=== PATIENT | male | born 1970 | race Caucasian/White ===

== ENCOUNTER 2022-08-03 17:07 | Inpatient (IN) | payer SELFPAY ==
--- NOTE | 2022-08-03 17:44 | RAD REPORT ---
EXAM DESCRIPTION: RAD - Chest Single View - 08/03/2022 5:38 pm CLINICAL HISTORY: syncope Chest pain. COMPARISON: No comparisons FINDINGS: Portable technique limits examination quality. The lungs are grossly clear. The heart is normal in size. No displaced fractures. IMPRESSION: No acute intrathoracic process suspected.
[2022-08-03 18:10] LABS: Absolute Lymphocytes (CBC) 1.1 K/uL (0.7-4.9); Hematocrit 29.1 % (39.6-49.0); MCV 93.4 fL (80-100); MPV 8.2 fL (7.6-11.3); RBC Red Blood Cell Count 3.11 M/uL (4.33-5.43)
[2022-08-03] MEDS ORDERED: NA CHLORIDE 0.9% 1,000 ML ONE ×2 (18:22→20:47)
[2022-08-03] MEDS ORDERED: NA CHLORIDE 0.9% 250 ML ONE (18:22)
[2022-08-03] MEDS ORDERED: PANTOPRAZOLE 40 MG INJ ONE (18:22)
[2022-08-03 18:26] LABS: Albumin 3.3 g/dL (3.4-5.0); Bilirubin Direct 0.1 mg/dL (0-0.2); Bilirubin Total 0.5 mg/dL (0.2-1.0); Magnesium 2.1 mg/dL (1.8-2.4); Potassium 3.8 mmol/L (3.5-5.1); Protein, Total 6.5 g/dL (6.4-8.2); Troponin High Sensitivity 13.6 pg/mL (<58.9)
[2022-08-03 18:52] LABS: Protime INR 1.04
--- NOTE | 2022-08-03 19:49 | ER ---
Nurse's Notes [facility] Name: Valentin Meyers Age: 52 yrs Sex: Male : 1970 Arrival Date: 08/03/2022 Time: 17:14 Bed 5 Private MD: Diagnosis: GI Bleed/ Gastrointestinal hemorrhage, unspecified;Syncope;Anemia, unspecified Presentation: 08/03 17:14 Method Of Arrival: EMS: [facility] 17:15 Chief complaint: EMS states: black stools x 3 days. Dizziness/ lightheadedness that ss began today. EMS reports that patient had a syncopal episode upon their arrival to scene. Coronavirus screen: Client denies travel out of the [place] in the last 14 days. Ebola Screen: Patient denies exposure to infectious person. Patient denies travel to an Ebola-affected area in the 21 days before illness onset. Initial Sepsis Screen: Does the patient meet any 2 criteria? No. Patient's initial sepsis screen is negative. Does the patient have a suspected source of infection? No. Patient's initial sepsis screen is negative. Risk Assessment: Do you want to hurt yourself or someone else? Patient reports no desire to harm self or others. Onset of symptoms was July 31, 2022. 17:15 Method Of Arrival: Ambulatory ss 17:15 Acuity: ROJAS 3 ss Triage Assessment: 17:19 General: Appears in no apparent distress. comfortable, Behavior is calm, cooperative, eh3 appropriate for age. Pain: Denies pain. Neuro: Reports dizziness, a syncopal episode. Neuro: Level of Consciousness is awake, alert, obeys commands, Oriented to person, place, time, situation. Cardiovascular: Capillary refill < 3 seconds Patient's skin is warm and dry. Respiratory: Airway is patent Respiratory effort is even, unlabored. GI: Abdomen is round non-distended, Reports bloody stool. : No signs and/or symptoms were reported regarding the genitourinary system. Derm: No signs and/or symptoms reported regarding the dermatologic system. Musculoskeletal: No signs and/or symptoms reported regarding the musculoskeletal system. Historical: - Allergies: 17:18 No Known Allergies; eh3 - Home Meds: 17:18 atorvastatin oral [Active]; Nifedipine Oral [Active]; olmesartan oral [Active]; eh3 - PMHx: 17:19 Hypertensive disorder; Hypercholesterolemia; eh3 - Immunization history:: Adult Immunizations up to date. - Social history:: Smoking status: Patient denies any tobacco usage or history of. Patient uses alcohol, occasionally. Screenin:21 Abuse screen: Denies threats or abuse. Denies injuries from another. Nutritional eh3 screening: No deficits noted. Tuberculosis screening: No symptoms or risk factors identified. Fall Risk None identified. Assessment: 17:21 Reassessment: See triage assessment. Neuro: Level of Consciousness is awake, alert, eh3 obeys commands, Oriented to person, place, time, situation. Cardiovascular: Rhythm is sinus tachycardia. 19:22 Reassessment: Patient appears in no apparent distress at this time. Patient and/or jb4 family updated on plan of care and expected duration. Pain level reassessed. Patient is alert, oriented x 3, equal unlabored respirations, skin warm/dry/pink. Pt's , Mikki Meyers called, pt gave verbal permission to give information to . Vital Signs: 17:14 BP 117 / 85; Pulse 106; Resp 15; Temp 98.6(O); Pulse Ox 99% on R/A; Weight 111.13 kg; eh3 Height 6 ft. 3 in. (190.50 cm); Pain 0/10; 18:00 BP 109 / 79; Pulse 99; Resp 16; Pulse Ox 100% on R/A; eh3 18:20 BP 111 / 79; Pulse 108; Resp 14; Pulse Ox 100% on R/A; eh3 17:14 Body Mass Index 30.62 (111.13 kg, 190.50 cm) eh3 ED Course: 17:14 Patient arrived in ED. ss 17:14 Lupe Wolff, RN is Primary Nurse. eh3 17:15 Arm band placed on right wrist. ss 17:16 Triage completed. ss 17:18 Segundo Moise PA is PHCP. cp 17:18 Segundo Travis MD is Attending Physician. cp 17:21 Patient has correct armband on for positive identification. Placed in gown. Bed in low eh3 position. Call light in reach. Side rails up X2. Client placed on continuous cardiac and pulse oximetry monitoring. NIBP monitoring applied. Door closed. Noise minimized. Lights dimmed. Warm blanket given. 17:21 No provider procedures requiring assistance completed. eh3 17:41 Inserted saline lock: 20 gauge in right antecubital area, using aseptic technique. eh3 Blood collected. 17:42 Lipase Sent. eh3 17:42 Ptt, Activated Sent. eh3 17:42 Basic Metabolic Panel Sent. eh3 17:42 CBC with Diff Sent. eh3 17:42 LFT's Sent. eh3 17:42 Magnesium Sent. eh3 17:42 NT PRO-BNP Sent. eh3 17:42 PT-INR Sent. eh3 17:42 Troponin HS Sent. eh3 18:47 Inserted saline lock: 20 gauge in left antecubital area, using aseptic technique. Blood eh3 collected. 19:48 Nhi Avila PA-C is Hospitalizing Provider. cp 21:36 Patient admitted, IV remains in place. tw5 Administered Medications: 18:47 Drug: ProTONIX (pantoprazole) 8 mg/hr Route: IV; Rate: 25 ml/hr; Site: left antecubital;3 21:34 Follow up: IV Status: Infusion continued upon admission tw5 18:47 Drug: ProTONIX (pantoprazole) 40 mg Route: IVP; Site: left antecubital; 3 21:35 Follow up: Response: No adverse reaction tw5 18:47 Drug: NS 0.9% 1000 ml Route: IV; Rate: 1 bolus; Site: left antecubital; eh3 21:35 Follow up: Response: No adverse reaction; IV Status: Completed infusion; IV Intake: tw5 1000ml 20:39 Not Given (Other Intervention Used): NS 0.9% 1000 ml IV at 1 bolus Per protocol; 1000 jb4 mL bolus 20:45 Drug: NS 0.9% 1000 ml Route: IV; Rate: 100 ml/hr; Site: right antecubital; jb4 21:34 Follow up: Response: No adverse reaction; IV Status: Completed infusion; IV Intake: tw5 1000ml Medication: 17:21 VIS not applicable for this client. 3 Point of Care Testing: Ranges: Intake: 21:34 IV: 1000ml; Total: 1000ml. tw5 21:35 IV: 1000ml; Total: 2000ml. tw5 Outcome: 19:49 Decision to Hospitalize by Provider. cp 21:35 Admitted to Med/surg Report called to bedside report tw5 21:35 Instructed on the need for admit. 21:36 Condition: stable tw5 21:37 Patient left the ED. tw5 Signatures: Archana Tay RN RN ss Segundo Moise PA PA cp Bryson, James, RN RN jb4 Yen Beth tw5 Lupe Wolff RN RN eh3 Corrections: (The following items were deleted from the chart) 17:18 17:14 BP 117 / 85; Pulse 106bpm; Resp 15bpm; Pulse Ox 99% RA; 111.13 kg; Height 6 ft. 3 eh3 in.; BMI: 30.6; Pain 0/10; eh3
--- NOTE | 2022-08-03 19:50 | EDPHYS ---
Physician Documentation [facility] Name: Valentin Meyers Age: 52 yrs Sex: Male : 1970 Arrival Date: 08/03/2022 Time: 17:14 Bed 5 Private MD: ED Physician Segundo Travis HPI: 08/03 17:30 This 52 yrs old Male presents to ER via EMS with complaints of Dizziness, Black/Tarry cp Stools, Syncope. 17:30 The patient presents with dizziness, generalized weakness, lightheadedness. Onset: The cp symptoms/episode began/occurred today. Associated signs and symptoms: Pertinent positives: syncope, black stools times 3 days, Pertinent negatives: abdominal pain, chest pain, diaphoresis, focal weakness. Severity of symptoms: in the emergency department the symptoms are unchanged despite home interventions. Patient's baseline: Neuro: alert and fully oriented, Motor: no deficits, Ambulation: walks without assistance, Speech: normal. Historical: - Allergies: 17:18 No Known Allergies; eh3 - Home Meds: 17:18 atorvastatin oral [Active]; Nifedipine Oral [Active]; olmesartan oral [Active]; eh3 - PMHx: 17:19 Hypertensive disorder; Hypercholesterolemia; eh3 - Immunization history:: Adult Immunizations up to date. - Social history:: Smoking status: Patient denies any tobacco usage or history of. Patient uses alcohol, occasionally. ROS: 17:35 Constitutional: Negative for body aches, chills, fever, poor PO intake. cp 17:35 Eyes: Negative for injury, pain, redness, and discharge. cp 17:35 ENT: Negative for drainage from ear(s), ear pain, sore throat, difficulty swallowing, difficulty handling secretions. 17:35 Cardiovascular: Negative for chest pain, edema, palpitations. 17:35 Respiratory: Negative for cough, shortness of breath, wheezing. 17:35 Abdomen/GI: Positive for black/tarry stool, Negative for abdominal pain, nausea and vomiting, diarrhea, constipation. 17:35 Neuro: Positive for syncope, weakness, Negative for altered mental status, headache, numbness. 17:35 All other systems are negative. Exam: 17:33 ECG was reviewed by the Attending Physician. cp 17:40 Constitutional: The patient appears in no acute distress, alert, awake, cp non-diaphoretic, non-toxic, well developed, well nourished. 17:40 Head/Face: Normocephalic, atraumatic. cp 17:40 Eyes: Periorbital structures: appear normal, Pupils: equal, round, and reactive to light and accomodation, Extraocular movements: intact throughout, Conjunctiva: normal, no exudate, no injection, Sclera: no appreciated abnormality, Lids and lashes: appear normal, bilaterally. 17:40 ENT: External ear(s): are unremarkable, Nose: is normal, Mouth: Lips: moist, Oral mucosa: pink and intact, moist, Posterior pharynx: Airway: no evidence of obstruction, patent. 17:40 Neck: ROM/movement: is normal, is supple, without pain, no range of motions limitations, no meningismus. 17:40 Chest/axilla: Inspection: normal, Palpation: is normal, no crepitus, no tenderness. 17:40 Cardiovascular: Rate: tachycardic, Rhythm: regular. 17:40 Respiratory: the patient does not display signs of respiratory distress, Respirations: normal, no use of accessory muscles, no retractions, labored breathing, is not present, Breath sounds: are clear throughout, no decreased breath sounds, no stridor, no wheezing. 17:40 Abdomen/GI: Inspection: abdomen appears normal, Bowel sounds: active, all quadrants, Palpation: abdomen is soft and non-tender, in all quadrants, Rectal exam: Stool: guaiac positive, black. 17:40 Back: pain, is absent, ROM is normal. 17:40 Musculoskeletal/extremity: Exam is negative for decreased range of motion, injury. 17:40 Neuro: Orientation: to person, place \T\ time. Mentation: is normal, Cerebellar function: is grossly normal, Motor: moves all fours, strength is normal, Sensation: is normal. Vital Signs: 17:14 BP 117 / 85; Pulse 106; Resp 15; Temp 98.6(O); Pulse Ox 99% on R/A; Weight 111.13 kg; eh3 Height 6 ft. 3 in. (190.50 cm); Pain 0/10; 18:00 BP 109 / 79; Pulse 99; Resp 16; Pulse Ox 100% on R/A; eh3 18:20 BP 111 / 79; Pulse 108; Resp 14; Pulse Ox 100% on R/A; eh3 17:14 Body Mass Index 30.62 (111.13 kg, 190.50 cm) 3 MDM: 17:19 Patient medically screened. 19:45 Data reviewed: vital signs, nurses notes, lab test result(s), EKG, radiologic studies, cp CT scan. 19:45 Test interpretation: by ED physician or midlevel provider: ECG. 19:47 Physician consultation: Mingo Archuleta MD was called at 19:47, was contacted at 19:48, regarding consult, patient's condition, and will see patient in inpatient room. 08/03 17:18 Order name: Basic Metabolic Panel cp 08/03 17:18 Order name: CBC with Diff cp 08/03 17:18 Order name: LFT's cp 08/03 17:18 Order name: Magnesium cp 08/03 17:18 Order name: NT PRO-BNP cp 08/03 17:18 Order name: PT-INR cp 08/03 17:18 Order name: Troponin HS cp 08/03 17:18 Order name: Ptt, Activated cp 08/03 17:19 Order name: Lipase cp 08/03 17:53 Order name: Type And Screen cp 08/03 17:53 Order name: Lactate cp 08/03 18:12 Order name: CBC with Automated Diff; Complete Time: 18:25 EDMS 08/03 18:28 Interpretation: Normal except: RBC 3.11; HGB 10.0; HCT 29.1; JOHNNY% 79.7; LYM% 11.0; NEUT cp A 8.3. 08/03 18:27 Order name: Basic Metabolic Panel; Complete Time: 18:28 EDMS 08/03 19:44 Interpretation: Normal except: GLUC 118; BUN 42; CA 8.2. cp 08/03 18:27 Order name: Liver (Hepatic) Function; Complete Time: 18:28 EDMS 08/03 17:18 Order name: XRAY Chest (1 view) cp 08/03 17:45 Order name: RAD; Complete Time: 17:51 EDMS 08/03 18:27 Order name: Troponin High Sensitivity; Complete Time: 18:28 EDMS 08/03 18:27 Order name: NT PRO-BNP; Complete Time: 18:28 EDMS 08/03 18:27 Order name: Magnesium; Complete Time: 18:28 EDMS 08/03 18:27 Order name: Lipase; Complete Time: 18:28 EDMS 08/03 18:52 Order name: CT Abd/Pelvis - IV Contrast Only cp 08/03 18:52 Order name: Protime (+INR); Complete Time: 19:43 EDMS 08/03 19:43 Interpretation: Reviewed. cp 08/03 18:52 Order name: PTT, Activated Partial Thromb; Complete Time: 19:43 EDMS 08/03 19:02 Order name: Lactate; Complete Time: 19:43 EDMS 08/03 19:44 Interpretation: Reviewed. cp 08/03 20:10 Order name: CT; Complete Time: 21:07 EDMS 08/03 20:30 Order name: SARS-COV-2 Antigen Rapid; Complete Time: 21:07 EDWA 08/03 20:37 Order name: ABO/RH no charge; Complete Time: 21:07 EDWA 08/03 20:53 Order name: Packed RBC Leukored EDWA 08/03 17:18 Order name: EKG; Complete Time: 17:20 cp 08/03 17:18 Order name: Cardiac monitoring; Complete Time: 17:23 cp 08/03 17:18 Order name: EKG - Nurse/Tech; Complete Time: 17:41 cp 08/03 17:18 Order name: IV Saline Lock; Complete Time: 17:41 cp 08/03 17:18 Order name: Labs collected and sent; Complete Time: 17:41 cp 08/03 17:18 Order name: O2 Per Protocol; Complete Time: 17:24 cp 08/03 17:18 Order name: O2 Sat Monitoring; Complete Time: 17:24 cp 08/03 17:53 Order name: IV; Complete Time: 18:46 cp EC:33 Rate is 103 beats/min. Rhythm is regular. UT interval is normal. QRS interval is cp normal. QT interval is normal. T waves are Inverted in leads aVL, aVR. Interpreted by me. Reviewed by me. Administered Medications: 18:47 Drug: ProTONIX (pantoprazole) 8 mg/hr Route: IV; Rate: 25 ml/hr; Site: left antecubital;eh3 21:34 Follow up: IV Status: Infusion continued upon admission tw5 18:47 Drug: ProTONIX (pantoprazole) 40 mg Route: IVP; Site: left antecubital; eh3 21:35 Follow up: Response: No adverse reaction tw5 18:47 Drug: NS 0.9% 1000 ml Route: IV; Rate: 1 bolus; Site: left antecubital; 3 21:35 Follow up: Response: No adverse reaction; IV Status: Completed infusion; IV Intake: tw5 1000ml 20:39 Not Given (Other Intervention Used): NS 0.9% 1000 ml IV at 1 bolus Per protocol; 1000 jb4 mL bolus 20:45 Drug: NS 0.9% 1000 ml Route: IV; Rate: 100 ml/hr; Site: right antecubital; jb4 21:34 Follow up: Response: No adverse reaction; IV Status: Completed infusion; IV Intake: tw5 1000ml Point of Care Testing: Ranges: Critical Glucose Levels:Adult <50 mg/dl or >400 mg/dl <40 mg/dl or >180 mg/dl Disposition Summary: 08/03/22 19:49 Hospitalization Ordered Hospitalization Status: Inpatient Admission cp Provider: Nhi Avila cp Location: Telemetry/[facility] (Inpatient) cp Condition: Stable cp Problem: new cp Symptoms: have improved cp Bed/Room Type: Standard cp Room Assignment: 423(08/03/22 21:26) eb1 Diagnosis - GI Bleed/ Gastrointestinal hemorrhage, unspecified cp - Syncope cp - Anemia, unspecified cp Forms: - Medication Reconciliation Form cp - SBAR form cp Signatures: Dispatcher [employer] EDMS Segundo Moise PA PA cp Hayden Brown RN RN jb4 Shoshana Pan RN RN eb1 Elvis Echevarria DO DO ms3 Lupe Wolff RN RN 3 Yen Beth tw5 Corrections: (The following items were deleted from the chart) 18:09 17:54 TYPE AND SCREEN+BB.LAB.BRZ ordered. EDMS EDMS 18:28 18:26 Normal except: RBC 3.11; HGB 10.0; HCT 29.1. cp cp 19:44 18:28 Normal except: GLUC 118; BUN 42. cp cp 21:26 19:49 cp eb1
--- NOTE | 2022-08-03 20:09 | RAD REPORT ---
EXAM DESCRIPTION: CTAbdomen Pelvis W Contrast - 08/03/2022 7:45 pm CLINICAL HISTORY: Abdominal pain. Melena COMPARISON: No comparisons TECHNIQUE: Biphasic CT imaging of the abdomen and pelvis was performed with 100 ml non-ionic IV cont rast. All CT scans are performed using dose optimization technique as appropriate and may include automated exposure control or mA/KV adjustment according to patient size. FINDINGS: The lung bases are clear. The liver, spleen, pancreas, adrenal glands and kidneys are within normal limits. No bowel obstruction, free air, free fluid or abscess. The appendix is normal. No evidence of signi ficant lymphadenopathy. No suspicious bony findings. IMPRESSION: No acute intra-abdominal or pelvic finding.
[2022-08-03 20:30] LABS: SARS-CoV-2 Antigen Rapid Res Negative (Negative)
[2022-08-03] MEDS ORDERED: ONDANSETRON 4 MG/2 ML VIAL IV PRN (21:51)
[2022-08-03] MEDS ORDERED: ACETAMINOPHEN 500 MG TAB PO PRN (21:51)
[2022-08-03] MEDS ORDERED: MORPHINE 2 MG/ML SYR IV PRN (21:51)
[2022-08-03] MEDS ORDERED: NA CHLORIDE 0.9% 250 ML IV SCH (22:00)
[2022-08-03] MEDS ORDERED: PANTOPRAZOLE INJ 80 MG in NA CHLORIDE 0.9% 250 ML IV SCH (22:00)
[2022-08-03 22:34] LABS: Hematocrit 26.5 % (39.6-49.0)
--- NOTE | 2022-08-03 22:53 | P.HP ---
Certification for Inpatient Patient admitted to: Inpatient With expected LOS: <2 Midnights Patient will require the following post-hospital care: None Practitioner: I am a practitioner with admitting privileges, knowledge of patient current condition, hospital course, and medical plan of care. Services: Services provided to patient in accordance with Admission requirements found in Title 42 Section 412.3 of the Code of Federal Regulations Patient History Date of Service: 08/04/22 Reason for admission: Upper GI Bleed History of Present Illness: Patient is a 52 year old male with hypertension and hyperlipidemia who presented to the ED with complaints of dark tarry stool x 3 days and dizziness/lightheadedness/syncopal episode today. He denies any daily blood thinner use or frequent nsaid/alcohol abuse. He was tachycardic in the ER. Labs significant for hgb [address] abdomen pelvis negative. GI was consulted and would like to perform EGD in morning. He was started on protonix drip and given 2L fluids. He reports improvement in symptoms and tachycardia has resolved. He has been type and screened. Patient is admitted for further managem ent. Allergies No Known Allergies Allergy (Unverified 08/03/22 21:14) Home medications list reviewed: Yes Home Medications: Atorvastatin Calcium [Lipitor] 20 mg PO DAILY 08/03/22 NIFEdipine [Nifedipine ER] 60 mg PO DAILY 08/03/22 Olmesartan/Hydrochlorothiazide [Olmesartan-Hctz 40-12.5 mg Tab] 1 each PO DAILY 08/03/22 - Past Medical/Surgical History Has patient received pneumonia vaccine in the past: No Diabetic: No -: Hypertension -: Hyperlipidemia Past Surgical History: Patient denies surgical history Psychosocial/ Personal History: Patient is . - Family History Family History: Reviewed- Non-Contributory - Social History Smoking Status: Never smoker Alcohol use: Yes CD- Drugs: No Caffeine use: No Place of Residence: Home Review of Systems General: Other (Dizzy, Lightheaded) Gastrointestinal: Melena Physical Examination - Physical Exam General: Alert, In no apparent distress HEENT: Atraumatic, PERRLA, EOMI, Sclerae nonicteric Neck: Supple, 2+ carotid pulse no bruit, No LAD, Without JVD or thyroid abnormality Respiratory: Clear to auscultation bilaterally, Normal air movement Cardiovascular: Regular rate/rhythm, Normal S1 S2 Gastrointestinal: Normal bowel sounds, No tenderness Musculoskeletal: No tenderness Integumentary: No rashes Neurological: Normal speech, Normal strength at 5/5 x4 extr, Normal tone, Normal affect - Studies Laboratory Data (last 24 hrs) 08/03/22 18:32: PT 11.5, INR 1.04, APTT 24.9 08/03/22 17:49: WBC 10.40, Hgb 10.0 L, Hct 29.1 L, Plt Count 206 08/03/22 17:49: Sodium 138, Potassium 3.8, BUN 42 H, Creatinine 0.89, Glucose 118 H, Magnesium 2.1, Total Bilirubin 0.5, AST 11 L, ALT 21, Alkaline Phosphatase 48, Lipase 210 Assessment and Plan - Problems (Diagnosis) (1) Upper GI bleed Current Visit: Yes Status: Acute (2) Anemia Current Visit: Yes Status: Acute Qualifiers: Anemia type: other cause Other causes of anemia: acute posthemorrhagic Qualified Code(s): D62 - Acute posthemorrhagic anemia (3) Hypertension Current Visit: Yes Status: Chronic Qualifiers: Hypertension type: primary hypertension Qualified Code(s): I10 - Essential (primary) hypertension (4) Hyperlipidemia Current Visit: Yes Status: Chronic Qualifiers: Hyperlipidemia type: unspecified Qualified Code(s): E78.5 - Hyperlipidemia, unspecified - Plan -Check hemoglobin and hemotocrit every 4 hours. Transfuse if hgb < 8 -NPO at midnight for EGD in morning -Dr. Archuleta consulting -Continue protonix drip and IV fluids -Monitor and replete electrolytes per protocol -Reconcile and continue home medications -SCDs for VTE prophylaxis -Full code Discharge Plan: Home Plan to discharge in: 48 Hours - Advance Directives Does patient have a Living Will: No Does patient have a Durable POA for Healthcare: No - Code Status/Comfort Care Code Status Assessed: Yes (Full) Critical Care: No Time Spent Managing Pts Care (In Minutes): 50
[2022-08-04 00:29] VITALS: BMI 29.1
[2022-08-04 02:11] LABS: Hematocrit 23.2 % (39.6-49.0)
[2022-08-04 05:06] LABS: Specific Gravity > 1.030 (1.005-1.030); Urine Bilirubin NEGATIVE (Negative); Urine Blood Negative (Negative); Urine Clarity Clear (Clear); Urine Color Light-Yellow (Yellow); Urine Glucose NEGATIVE (Negative); Urine Protein NEGATIVE (Negative); Urine Urobilinogen Normal (Normal); Urine pH 5.5 (5.0-7.0)
[2022-08-04] MEDS: NA CHLORIDE 0.9% 1,000 ML IV SCH ×2 (05:33→17:25)
[2022-08-04 05:56] LABS: Absolute Lymphocytes (CBC) 1.2 K/uL (0.7-4.9); Lymphocytes % 18.6 % (15.3-44.8); MCV 93.2 fL (80-100); MPV 8.1 fL (7.6-11.3); RBC Red Blood Cell Count 2.47 M/uL (4.33-5.43)
[2022-08-04 06:09] LABS: Potassium 3.5 mmol/L (3.5-5.1)
[2022-08-04] MEDS ORDERED: POTASSIUM 25 MEQ EFFERV TAB PO ONE ×2 (06:27→09:00)
[2022-08-04] MEDS ORDERED: KCL 20 MEQ/100 mL IVPB 20 MEQ/100 ML BAG IV ONE (09:00)
[2022-08-04 12:24] LABS: Absolute Lymphocytes (CBC) 1.2 K/uL (0.7-4.9); Lymphocytes % 16.3 % (15.3-44.8); MCV 94.6 fL (80-100); MPV 8.3 fL (7.6-11.3); RBC Red Blood Cell Count 2.75 M/uL (4.33-5.43)
[2022-08-04] MEDS ORDERED: Ringers Lactate 1,000 ML IV ONE (12:35)
[2022-08-04] MEDS ORDERED: propofoL 200 MG/20 ML VIAL IV ONE ×2 (13:15→13:35)
[2022-08-04] MEDS ORDERED: LIDOCAINE 1% MPF 5 ML VIAL ONE (13:15)
--- NOTE | 2022-08-04 13:38 | EKG ---
Test Date: 2022-08-03 Test Time: 17:26:48 Cnc Operator Programmer: SURESH MEASUREMENT RESULTS: Intervals: Rate: 103 AK: 162 QRSD: 84 QT: 326 QTc: 427 [place]: P: 67 AK: 162 QRS: 44 T: 89 INTERPRETIVE STATEMENTS: Sinus tachycardia with fusion complexes Nonspecific ST and T wave abnormality Abnormal ECG No previous ECG available for comparison Electronically Signed On 08-04-22 13:37:01 CDT by Aamir Gipson
[2022-08-04] MEDS ORDERED: EPINEPHRINE/PF 1 MG/ML AMP ONE (13:40)
[2022-08-04] MEDS: PANTOPRAZOLE INJ 80 MG in NA CHLORIDE 0.9% 250 ML IV SCH (17:25)
[2022-08-05] MEDS: PANTOPRAZOLE INJ 80 MG in NA CHLORIDE 0.9% 250 ML IV SCH ×3 (02:45→20:14)
[2022-08-05] MEDS: NA CHLORIDE 0.9% 1,000 ML IV SCH ×4 (02:46→22:16)
--- NOTE | 2022-08-05 02:52 | P.PN ---
Date of Service: 08/04/22 Subjective Patient denies any new complaints. Continues to have melanotic stools. No abdominal pain. No history of NSAID or alcohol use. Physical Examination - Physical Exam General: Alert, In no apparent distress Respiratory: Clear to auscultation bilaterally, Normal air movement Cardiovascular: Regular rate/rhythm, Normal S1 S2 Gastrointestinal: Normal bowel sounds, No tenderness Neurological: No focal deficits Assessment and Plan - Problems (Diagnosis) (1) Upper GI bleed Current Visit: Yes Status: Acute (2) Anemia Current Visit: Yes Status: Acute Qualifiers: Anemia type: other cause Other causes of anemia: acute posthemorrhagic Qualified Code(s): D62 - Acute posthemorrhagic anemia (3) Hypertension Current Visit: Yes Status: Chronic Qualifiers: Hypertension type: primary hypertension Qualified Code(s): I10 - Essential (primary) hypertension (4) Hyperlipidemia Current Visit: Yes Status: Chronic Qualifiers: Hyperlipidemia type: unspecified Qualified Code(s): E78.5 - Hyperlipidemia, unspecified - Plan continue with plan of care as mentioned below: -Check hemoglobin and hemotocrit every 4 hours. Transfuse if hgb < 8 -NPO at midnight for EGD in morning -Dr. Archuleta consulting -Continue protonix drip and IV fluids -Monitor and replete electrolytes per protocol -Reconcile and continue home medications -SCDs for VTE prophylaxis -Full code
[2022-08-05 04:41] LABS: Absolute Lymphocytes (CBC) 1.4 K/uL (0.7-4.9); Hematocrit 21.2 % (39.6-49.0); Lymphocytes % 24.5 % (15.3-44.8); MCV 94.4 fL (80-100); MPV 8.2 fL (7.6-11.3); RBC Red Blood Cell Count 2.24 M/uL (4.33-5.43)
--- NOTE | 2022-08-05 04:43 | OP ---
Surgeon: Mingo Archuleta MD Procedure: EGD. Indication For Procedure: Melena with GI bleeding and anemia with hemoglobin down to 8. Medications: Per Anesthesia. The patient gave informed consent with benefits and alternatives given to the patient. Procedure In Detail: The patient was placed in the left lateral position. Sedation was given by Iveth castro with IV propofol. The patient was intubated with endoscope and intubated down to the third p ortion of the duodenum. Upon withdrawal, there was normal duodenal mucosa, normal esophagus, and nor mal GE junction with a small hiatal hernia noted at the GE junction. Patient had some mild gastritis in the antrum and 4 ulcers that are 2, 3, and 4 mm clean based ulcers and a 1 cm ulcer with surround ing edema with bright red heme in the base of the ulcer to the anterior cephalad side. Ulcer was inj ected with 5 cc of epinephrine diluted 1:10,000. There was no active bleeding before injection or af ter. The patient tolerated procedure well. The endoscope was removed. Impression: Four ulcers in the antrum of 2, 3, and 4 mm clean based ulcers and 1 large 1 cm ulcer wi th red heme in the anterior cephalad aspect of the base of the ulcer. Status post 5 cc of epinephrin e diluted 1:10,000 injected in and around the ulcer. Since patient's bleeding had ceased with IV Pro tonix, continue patient is on Protonix 40 mg p.o. b.i.d. for 3 months and have patient return for rep eat endoscopic evaluation. Recommendations: 1.Await gastric biopsy results. 2.Continue Protonix IV drip and to tube coverer to Protonix 40 mg p.o. b.i.d. upon discharge with GI Clinic followup in 1-2 weeks. We will also check gastrin level in the morning in this patient with m ultiple gastric ulcers and a first time bleeding with no known cause for his ulcers. No excessive NSAIDs, aspirin, blood thinners, stress, infection, trauma, or ot her. LIZETT/NICHOLE Voice ID: [id number] Report ID: [id number]
[2022-08-05 04:51] LABS: Potassium 3.5 mmol/L (3.5-5.1)
[2022-08-05] MEDS ORDERED: POTASSIUM 25 MEQ EFFERV TAB PO ONE ×2 (05:24→07:31)
[2022-08-05 18:50] LABS: Absolute Lymphocytes (CBC) 1.1 K/uL (0.7-4.9); Hematocrit 23.3 % (39.6-49.0); Lymphocytes % 19.3 % (15.3-44.8); MCV 94.4 fL (80-100); RBC Red Blood Cell Count 2.47 M/uL (4.33-5.43)
--- NOTE | 2022-08-05 19:02 | P.PN ---
Subjective Date of Service: 08/05/22 Chief Complaint: Upper GI Bleed, gastric ulcers Subjective: Improving (s/p EGD yesterday with gastric ulcers noted.) Physical Examination - Vital Signs Temperature: 97.9 F Blood Pressure: 137/88 Pulse: 83 Respirations: 14 Pulse Ox (%): 99 Assessment And Plan - Current Problems (Diagnosis) (1) Gastric ulcer Current Visit: Yes Status: Acute (2) Anemia Current Visit: Yes Status: Acute Qualifiers: Anemia type: other cause Other causes of anemia: acute posthemorrhagic Qualified Code(s): D62 - Acute posthemorrhagic anemia (3) Upper GI bleed Current Visit: Yes Status: Acute - Plan REC: 1) check gastrin level 2) continue PPI therapy (outpatient bid dosing) 3) repeat EGD in 3 months due to large gastric ulcer 1 cm
[2022-08-06] MEDS: PANTOPRAZOLE INJ 80 MG in NA CHLORIDE 0.9% 250 ML IV SCH ×2 (06:19→15:46)
[2022-08-06] MEDS: NA CHLORIDE 0.9% 1,000 ML IV SCH ×3 (06:20→08:43)
[2022-08-06 06:29] LABS: Absolute Lymphocytes (CBC) 1.1 K/uL (0.7-4.9); Lymphocytes % 22.4 % (15.3-44.8); MCV 94.4 fL (80-100); MPV 7.9 fL (7.6-11.3)
[2022-08-06 06:38] LABS: Hematocrit 19.9 % (39.6-49.0)
[2022-08-06 06:46] LABS: Potassium 3.6 mmol/L (3.5-5.1)
[2022-08-06] MEDS ORDERED: POTASSIUM 25 MEQ EFFERV TAB PO ONE (09:00)
[2022-08-06] MEDS ORDERED: NA CHLORIDE 0.9% 250 ML ONE (10:22)
--- NOTE | 2022-08-06 18:25 | CON ---
Date of Consultation: 08/04/2022 Reason For Consultation: New onset of melena over the past 3 days and GI bleeding. History Of Present Illness: The patient is a 52-year-old white male with history of hypertension and hyperlipidemia who presented to the hospital with melena over the past 3 days, dizziness, lightheade dness, and syncopal episode today. He denies any use of blood thinners or heavy use of NSAID, aspiri n, or alcohol. He does say he takes Aleve every once in a while and the last time he took this was l ast week for right shoulder pain, but no excessive use of aspirin or ibuprofen. He denies abdominal pain, nausea, vomiting, hematemesis, hematuria, hematochezia, trauma, recreational drugs, or other. He states he has never had an episode of having black stools before. He is unsure why. He denies an y excessive stress in his life currently or smoking though he does drink occasional alcohol. Past Medical History: Significant for hypertension and hyperlipidemia. Social History: Originally from [place], here for the rest of the year for work. He is . No children. No tobacco. Occasional alcohol. He is from [place] as stated above. Family History: Father alive and well. Mother of congestive heart failure. Review of Systems: The patient had black stools with some dizziness, lightheadedness, and syncopal episode. He denies a ny hematochezia, melena, coffee-ground emesis, hematuria, dysuria, polydipsia, hemoptysis, epistaxis, or any other blood seen other than the melena. He denies any back pain muscle pain, muscle aches, j oint aches. No chest pain, shortness of breath, seizure, syncope. No depression or anxiety. Physical Examination: Vital Signs: Patient is 6 feet 3, 233 pounds, BMI of 29.1 kg/sq m. He has a temperature of 98.1 deg sherry Fahrenheit, pulse 73, respirations 14, blood pressure 157/80, O2 saturation 100%. HEENT: Normocephalic, atraumatic. Anicteric. Pupils equal, round, and reactive to light. Extraocu lar movements are intact. Oropharynx clear. Neck: Supple. No masses. Respirations clear to auscultation bilaterally. Cardiac: Regular rate and rhythm. No gallops or rubs. Abdomen: Positive bowel sounds. Soft, nontender, nondistended. No hepatosplenomegaly. Extremities: No clubbing, cyanosis, or edema. 2+ pulses. Neuro: Alert and oriented x3. Grossly nonfocal. 5/5 motor. Sensation intact to light touch. Data: The patient has a white count of 7.1, hemoglobin of 8.8, hematocrit 26.0, MCV of 95, platelet count of 158. He has a PT of 11.5, INR of 1.04, PTT of 24.9. Sodium 142, potassium 3.5, chloride 11 1, bicarb 26, BUN 27, creatinine of 0.8, glucose 86, calcium 7.5. Yesterday he had a magnesium of 2. 1. Total bilirubin 0.5, direct bilirubin 0.1, AST of 11, ALT of 21, alkaline phosphatase 48. Tropon in I high sensitivity of 13.6 with normal B type nitrate peptide of 36, which is normal. Total prote in 6.5, albumin 3.3, lipase 210. UA shows trace ketones, otherwise negative. Serology: COVID-19 te sting was negative. CT abdomen and pelvis was negative and chest x-ray was negative. Impression: 1.New onset of melena x3 days with syncopal episode at home. We will need to investigate with EGD. He does report taking Aleve, but it was only 1 small dose last week for right shoulder pain. Otherw ise, no excessive aspirin, ibuprofen, blood thinners, or other. No prior GI bleeding events noted by patient. No nausea, vomiting, hematemesis, coffee-ground emesis, hematochezia, hematuria, abdominal pain, trauma, recreation drugs or other. 2.History of hypertension and hyperlipidemia. Recommendations: 1.Continue IV fluids. 2.Check serial H and Hs and transfuse p.r.n. 3.PPI therapy. 4.Emergent EGD. LIZETT/NICHOLE Voice ID: [id number] Report ID: [id number]
[2022-08-06 18:27] LABS: Hematocrit 28.9 % (39.6-49.0)
--- NOTE | 2022-08-06 19:15 | P.PN ---
Subjective Date of Service: 08/06/22 Chief Complaint: Upper GI Bleed, gastric ulcers Subjective: Improving (No complaints. States he feels fine, not lightheaded, dizzy. He notes much less melena today. Wants to know when he can go home. Hgb bouncing around 7 to 10 range, 9.8 now.) Review of Systems 10-point ROS is otherwise unremarkable Gastrointestinal: Melena (Improved. ) Physical Examination - Vital Signs Temperature: 97.9 F Blood Pressure: 171/95 Pulse: 86 Respirations: 14 Pulse Ox (%): 100 - Physical Exam General: Alert, In no apparent distress, Oriented x3, Cooperative HEENT: Atraumatic, Normocephalic, PERRLA, EOMI Neck: Supple Cardiovascular: Normal pulses, Regular rate/rhythm Gastrointestinal: Soft and benign, No tenderness, No rebound, No guarding Neurological: Normal speech, Normal strength at 5/5 x4 extr Assessment And Plan - Current Problems (Diagnosis) (1) Gastric ulcer Current Visit: Yes Status: Acute (2) Anemia Current Visit: Yes Status: Acute Qualifiers: Anemia type: other cause Other causes of anemia: acute posthemorrhagic Qualified Code(s): D62 - Acute posthemorrhagic anemia (3) Upper GI bleed Current Visit: Yes Status: Acute - Plan REC: 1) await gastrin level 2) continue PPI therapy (outpatient bid dosing) 3) repeat EGD in 3 months due to large gastric ulcer 1 cm
[2022-08-07] MEDS: NA CHLORIDE 0.9% 1,000 ML IV SCH ×4 (00:20→23:31)
--- NOTE | 2022-08-07 01:47 | P.PN ---
Date of Service: 08/05/22 Subjective EGD today; Physical Examination - Physical Exam General: Alert, In no apparent distress Respiratory: Clear to auscultation bilaterally, Normal air movement Cardiovascular: Regular rate/rhythm, Normal S1 S2 Gastrointestinal: Normal bowel sounds, No tenderness Neurological: No focal deficits Assessment and Plan - Problems (Diagnosis) (1) Upper GI bleed Current Visit: Yes Status: Acute (2) Anemia Current Visit: Yes Status: Acute Qualifiers: Anemia type: other cause Other causes of anemia: acute posthemorrhagic Qualified Code(s): D62 - Acute posthemorrhagic anemia (3) Hypertension Current Visit: Yes Status: Chronic Qualifiers: Hypertension type: primary hypertension Qualified Code(s): I10 - Essential (primary) hypertension (4) Hyperlipidemia Current Visit: Yes Status: Chronic Qualifiers: Hyperlipidemia type: unspecified Qualified Code(s): E78.5 - Hyperlipidemia, unspecified - Plan continue with plan of care as mentioned below: -Check hemoglobin and hemotocrit every 4 hours. Transfuse if hgb < 8 -EGD pending -Dr. Archuleta consulting -Continue protonix drip and IV fluids -Monitor and replete electrolytes per protocol -Reconcile and continue home medications -SCDs for VTE prophylaxis -Full code
--- NOTE | 2022-08-07 01:48 | P.PN ---
Date of Service: 08/06/22 Subjective Pt Hgb still flunctuating; GI may take him back for EGD Physical Examination - Physical Exam General: Alert, In no apparent distress Respiratory: Clear to auscultation bilaterally, Normal air movement Cardiovascular: Regular rate/rhythm, Normal S1 S2 Gastrointestinal: Normal bowel sounds, No tenderness Neurological: No focal deficits Assessment and Plan - Problems (Diagnosis) (1) Upper GI bleed Current Visit: Yes Status: Acute (2) Anemia Current Visit: Yes Status: Acute Qualifiers: Anemia type: other cause Other causes of anemia: acute posthemorrhagic Qualified Code(s): D62 - Acute posthemorrhagic anemia (3) Hypertension Current Visit: Yes Status: Chronic Qualifiers: Hypertension type: primary hypertension Qualified Code(s): I10 - Essential (primary) hypertension (4) Hyperlipidemia Current Visit: Yes Status: Chronic Qualifiers: Hyperlipidemia type: unspecified Qualified Code(s): E78.5 - Hyperlipidemia, unspecified - Plan continue with plan of care as mentioned below: -Monitor H&H -EGD repeat in the AM if Hgb drops -Dr. Archuleta consulting -Continue protonix drip and IV fluids -SCDs for VTE prophylaxis -Full code
[2022-08-07] MEDS: PANTOPRAZOLE INJ 80 MG in NA CHLORIDE 0.9% 250 ML IV SCH ×3 (03:54→23:30)
[2022-08-07 06:02] LABS: Absolute Lymphocytes (CBC) 1.3 K/uL (0.7-4.9); Hematocrit 24.7 % (39.6-49.0); MCV 93.3 fL (80-100); MPV 8.3 fL (7.6-11.3); RBC Red Blood Cell Count 2.65 M/uL (4.33-5.43)
[2022-08-07 06:40] LABS: BUN Blood Urea Nitrogen 6 mg/dL (7-18); Bicarbonate 27 mmol/L (21-32); Folic Acid, (Folate) > 20.0 ng/mL (3.1-17.5); Glomerular Filtration Rate 101 ml/min (=/>90); Glucose Level 98 mg/dL (74-106); Magnesium 2.1 mg/dL (1.8-2.4); Potassium 3.7 mmol/L (3.5-5.1); Sodium Level 143 mmol/L (136-145)
[2022-08-07] MEDS ORDERED: POTASSIUM 25 MEQ EFFERV TAB PO ONE (07:33)
[2022-08-07] MEDS ORDERED: POTASSIUM CL SA 10 MEQ TAB PO ONE ×2 (08:28→09:00)
[2022-08-07 09:09] LABS: Hematocrit 26.7 % (39.6-49.0)
[2022-08-07] MEDS ORDERED: propofoL 200 MG/20 ML VIAL IV ONE ×2 (12:19→12:51)
[2022-08-07] MEDS ORDERED: EPINEPHRINE/PF 1 MG/ML AMP ONE (12:42)
--- NOTE | 2022-08-07 13:03 | ENDO RPT ---
[address], [address] EGD PROCEDURE REPORT EXAM DATE: 08/07/2022 PATIENT NAME: Valentin Meyers MR#: [id number] BIRTHDATE: 1970 ATTENDING: Mingo Archuleta Dr STATUS: inpatient - 7 PET AMBASSADOR: Rissa Houston RN and Salome Rivera CST INDICATIONS: The patient is a 52 yr old Male here for an EGD due to melenic bleeding and anemia with recurrent drop in hgb PROCEDURE PERFORMED: EGD for control of bleeding and EGD with injection of Epinephrine MEDICATIONS: Per Anesthesia. TOPICAL ANESTHETIC: none CONSENT: The patient understands the risks and benefits of the procedure and understands that these risks include, but are not limited to: sedation, allergic reaction, infection, perforation and/or bleeding. Alternative means of evaluation and treatment include, among others: physical exam, x-rays, and/or surgical intervention. The patient elects to proceed with this endoscopic procedure. DESCRIPTION OF PROCEDURE: During intra-op preparation period all mechanical medical equipment was checked for proper function. Hand hygiene and appropriate measures for infection prevention was taken. Procedure, possible complications, and alternatives including but not limited to the possibility of bleeding, perforation, tear, infection, sepsis, need for surgery, need for blood transfusion, and anesthesia related complications were explained to the patient. After the risks, benefits and alternatives of the procedure were thoroughly explained, Informed consent was verified, confirmed and timeout was successfully executed by the treatment team. The patient was placed in the left lateral position. The patient was anesthetized with topical anesthesia. Through the anesthetized oropharyngeal area, the scope was passed without any difficulty. The EG-[id number] ([id number]) endoscope was introduced through the mouth and advanced to the third portion of the duodenum. Retroflexed views revealed a small hiatal hernia. The gastroscope was then slowly withdrawn and removed. LA Class B esophagitis was found in the lower esophagus. A small hiatal hernia was found. Multiple (2, 3, 4, 10 mm) ulcers were found in the antrum, unable to clip 10 mm ulcer but no active bleeding; 7 cc Epinephrine 1:10,000 injected. Sclerotherapy was performed with absolute alcohol injection. Mild gastritis was found in the antrum. Duodenitis was found in the bulb of the duodenum. ADVERSE EVENTS: There were no complications. IMPRESSIONS: 1. LA Class B esophagitis was found in the lower esophagus 2. A small hiatal hernia 3. Multiple (2, 3, 4, 10 mm) ulcers in the antrum, unable to clip 10 mm ulcer but no active bleeding; 7 cc Epinephrine 1:10,000 injected 4. Mild gastritis in the antrum (prior gastric biopsies on 08-04-22) 5. Duodenitis in the bulb of the duodenum RECOMMENDATIONS: 1. acid suppression therapy 2. await gastrin level REPEAT EXAM: Mingo Archuleta Dr eSigned: Mingo Archuleta Dr 08/07/2022 1:02 PM cc: Regan Quintana CPT CODES: ICD9 CODES: PATIENT NAME: Valentin Meyers MR#: [id number]
[2022-08-07] MEDS ORDERED: NA CHLORIDE 0.9% 1,000 ML ONE (13:11)
[2022-08-07 16:08] LABS: Hematocrit 29.7 % (39.6-49.0)
[2022-08-08] MEDS: NA CHLORIDE 0.9% 1,000 ML IV SCH (02:00)
[2022-08-08 04:01] VITALS: O2SAT 97
[2022-08-08 06:26] LABS: Hematocrit 24.3 % (39.6-49.0)
--- NOTE | 2022-08-08 07:31 | P.DS ---
Admission Date: 08/03/22 Discharge Date: 08/08/22 Disposition: ROUTINE DISCHARGE Discharge Condition: GOOD Reason for Admission: Upper GI Bleed, gastric ulcers Consultations: 1. Gastroenterology Procedures: - 08/04/2022: Esophagogastroduodenoscopy - Esophagitis with Possible Barretts, Ulcers in the Antrum, Duodenitis - S/P 1 mg Epinephrine Injection into Ulcer - 08/07/2022: Esophagogastroduodeonscopy - LA Class B Esophagitis found in Lower Esophagus - Multiple (2, 3, 4, 10 mm) ulcers in the antrum, unable to clip 10 mm ulcer but no active bleeding; 7 cc epinephrine 1:10,000 injected - Mild gastritis in the antrum - Duodenitis in the bulb of the duodenum Hospital Course: DIAGNOSES: # Acute Blood Loss Anemia secondary to Multiple Bleeding Gastric Ulcers/LA Class B Esophagitis/Duodenitis # Hypertension # Hyperlipidemia HOSPITAL COURSE: Mr. Valentin Meyers is a pleasant 52 year old male with a past medical history significant for hypertension and hyperlipidemia who was admitted to the [facility] on 08/03/2022 for melena. He was admitted to the Medicine service. Upon further evaluation, he was found to have acute blood loss anemia secondary to an upper gastrointestinal bleed. Gastroenterology was consulted and he was evaluated by Dr. Archuleta. He underwent a esophagogastroduodenoscopy on 08/04/2022, which revealed possible Bergman's esophagitis with antral ulcers and duodenitis. He was treated with an epinephrine injection; however, his hemoglobin count continued to fluctuate. For this reason, Dr. Archuleta repeated his esophagogastroduodenoscopy on 08/07/2022, which revealed LA class B esophagitis, antral gastritis, duodenitis, and multiple antral ulcers. He re-injected the ulcers with epinephrine. Despite the fluctuatation of his hemoglobin, he denied any recurrent episodes of melena post-procedure. He stated that he feels fine and would like to be discharged home. I shared my concerns with him given that his hemoglobin dropped to 8.3 this morning and that this could be a sign of recurrent/breakthrough bleeding. I explained that gastrointestinal hemorrhage is a serious condition that could be potentially fatal if he continues to bleed. He states that he understands and accepts these risks and he would like to be discharged today despite these risks. I advised that he return to the Emergency Department for further evaluation should he develop any hematochezia, melena, hematemesis, chest pain, dizziness, syncope, or any other symptoms that he finds concerning. I have spoken with Dr. Archuleta, who agrees with this plan of care and will follow-up with him in the clinic setting. On 08/08/2022, he was seen on morning rounds and deemed medically stable for discharge. He was discharged with instructions to schedule follow-up appointments with his PCP in 3-5 days and with Gastroenterology (Dr. Archuleta) in 3-5 days. He was provided prescriptions for pantoprazole, famotidine, and sulcralfate. He was given the opportunity to ask questions and reported no further questions. Furthermore, all questions were answered to the best of my ability. A copy of this discharge summary will be sent to the above providers to facilitate continuity of care. Today, I personally spent 35 minutes on his case, of which greater than 50% of the time was spent in patient education, counseling, and coordination of care as described above. Vital Signs/Physical Exam: Temp Pulse Resp BP Pulse Ox 97.4 F 69 19 140/89 97 08/08/22 04:00 08/08/22 04:00 08/08/22 04:00 08/08/22 04:00 08/08/22 04:00 General: Alert, In no apparent distress, Oriented x3 HEENT: Atraumatic, PERRLA, Mucous membr. moist/pink, EOMI, Sclerae nonicteric Neck: Supple, JVD not distended Respiratory: Clear to auscultation bilaterally, Normal air movement Cardiovascular: No edema, Regular rate/rhythm, Normal S1 S2, No gallops, No rubs, No murmurs Capillary refill: <2 Seconds Gastrointestinal: Normal bowel sounds, Soft and benign, Non-distended Musculoskeletal: No clubbing Integumentary: No rashes Neurological: Normal speech, Cranial nerves 3-12 intact, Normal affect Laboratory Data at Discharge: WBC 5.60 K/uL (4.3-10.9) 08/07/22 05:19 Hgb 8.3 g/dL (13.6-17.9) L D 08/08/22 06:20 Hct 24.3 % (39.6-49.0) L 08/08/22 06:20 Plt Count 157 K/uL (152-406) 08/07/22 05:19 PT 11.5 SECONDS (9.5-12.5) 08/03/22 18:32 INR 1.04 08/03/22 18:32 APTT 24.9 SECONDS (24.3-36.9) 08/03/22 18:32 Sodium Cancelled 08/08/22 05:00 Potassium Cancelled 08/08/22 05:00 BUN Cancelled 08/08/22 05:00 Creatinine Cancelled 08/08/22 05:00 Glucose Cancelled 08/08/22 05:00 Magnesium 2.1 mg/dL (1.8-2.4) 08/07/22 05:19 Total Bilirubin 0.5 mg/dL (0.2-1.0) 08/03/22 17:49 AST 11 U/L (15-37) L 08/03/22 17:49 ALT 21 U/L (12-78) 08/03/22 17:49 Alkaline Phosphatase 48 U/L (45-117) 08/03/22 17:49 Lipase 210 U/L (73-393) 08/03/22 17:49 Home Medications: Atorvastatin Calcium [Lipitor*] 20 mg PO DAILY 08/03/22 NIFEdipine [Nifedipine ER] 60 mg PO DAILY 08/03/22 Famotidine 20 mg PO BID #60 tab 08/08/22 Pantoprazole [Protonix Tab*] 40 mg PO BID #60 tab 08/08/22 Sucralfate [Carafate*] 1 gm PO ACHS #120 tab 08/08/22 New Medications: Sucralfate [Carafate*] 1 gm PO ACHS #120 tab Famotidine 20 mg PO BID #60 tab Pantoprazole [Protonix Tab*] 40 mg PO BID #60 tab Physician Discharge Instructions: OK TO DC IV AND DC HOME FOLLOW-UP WITH PRIMARY CARE PROVIDER IN 1-2 WEEKS FOLLOW-UP WITH Gastroenterology IN 1-2 WEEKS RETURN TO THE ER IF CALL DR. GUERRA AT [phone] IF ANY QUESTIONS REGARDING HOSPITAL STAY. PLEASE CALL THE FLOOR AT [phone] IF ANY MEDICATION OR NURSING QUESTIONS. Diet: [place] Activity: Fall precautions Followup: Mingo Archuleta MD [ASSOCIATE-ACTIVE - CAN ADMIT] - (call to schedule appointment)
[2022-08-08 08:09] VITALS: BP 180/86; TEMP 98
--- NOTE | 2022-08-08 08:42 | P.PN ---
Date of Service: 08/07/22 Subjective patient going back for EGD today and had injection of an ulcer but there was no active bleeding per GI. They felt like that was the area that may have bled initially. No signs of any active bleeding. Patient's repeat hemoglobin is back up to 9.8 after no interventions / blood transfusion. Patient has been very upset that his hemoglobin has fluctuated without anything changing. He feels good and has noticed some melanotic stools but these have been improving. He is getting out of bed without any symptoms. He wants to go home and get back to work. He does not really want his blood work checked anymore because the lab to fluctuated and have prolonged his hospitalization according to the patient. He wants to return back to work on Monday since he is from out of town and wanting to make money before he goes back home. As long as he is not lightheaded he should be able to return back to work but no heavy lifting for at least a week. I have talked to him in detail regarding this and have told him if he has any lightheadedness or any complaints of low blood pressure or any b leeding to return back to the emergency room. He is wanting to go home but he is willing to stay overnight 1 more night and he will discharge tomorrow. She is not wanting any left lab work performed. Physical Examination - Physical Exam General: Alert, In no apparent distress Respiratory: Clear to auscultation bilaterally, Normal air movement Cardiovascular: Regular rate/rhythm, Normal S1 S2 Gastrointestinal: Normal bowel sounds, No tenderness Neurological: No focal deficits Assessment and Plan - Problems (Diagnosis) (1) Upper GI bleed Current Visit: Yes Status: Acute (2) Anemia Current Visit: Yes Status: Acute Qualifiers: Anemia type: other cause Other causes of anemia: acute posthemorrhagic Qualified Code(s): D62 - Acute posthemorrhagic anemia (3) Hypertension Current Visit: Yes Status: Chronic Qualifiers: Hypertension type: primary hypertension Qualified Code(s): I10 - Essential (primary) hypertension (4) Hyperlipidemia Current Visit: Yes Status: Chronic Qualifiers: Hyperlipidemia type: unspecified Qualified Code(s): E78.5 - Hyperlipidemia, unspecified - Plan continue with plan of care as mentioned below: -repeat EGD with no active bleeding; patient anxious to go back to work. Have told him to stay overnight but he does not want any lab work performed. He does not trust the lab and wants to go home as he is asymptomatic. -GI consultation appreciated -change to PPI twice a day -strict blood pressure control; hold off on BP med -Full code
== END 2022-08-08 08:03 | disposition home or self-care (01) | DRG 368 ==
LOC: ER 17:07 → ERHOLD 21:05 → 4TH 21:28
PROVIDERS: ADMIT Hospitalist; ATTEND Internal Medicine
PROC: 0DB68ZX Excision of Stomach, Via Natural or Artificial Opening Endoscopic, Diagnostic (ICD-10-PCS; principal; 2022-08-03)
PROC: 30233N1 Transfusion of Nonautologous Red Blood Cells into Peripheral Vein, Percutaneous Approach (ICD-10-PCS; 2022-08-06)
PROC: 0W3P8ZZ Control Bleeding in Gastrointestinal Tract, Via Natural or Artificial Opening Endoscopic (ICD-10-PCS; 2022-08-07)
PROC: 3E0G8TZ Introduction of Destructive Agent into Upper GI, Via Natural or Artificial Opening Endoscopic (ICD-10-PCS; 2022-08-07)
DX: K20.81 Other esophagitis with bleeding (principal); K25.4 Chronic or unspecified gastric ulcer with hemorrhage; K29.81 Duodenitis with bleeding; K29.71 Gastritis, unspecified, with bleeding; D62 Acute posthemorrhagic anemia; K22.70 Barrett's esophagus without dysplasia; K44.9 Diaphragmatic hernia without obstruction or gangrene; I10 Essential (primary) hypertension; E78.5 Hyperlipidemia, unspecified; R00.0 Tachycardia, unspecified; R55 Syncope and collapse; Z79.899 Other long term (current) drug therapy; Z20.822 Contact with and (suspected) exposure to COVID-19
CPT/HCPCS: 36415; 36430; 71045; 74177; 80048; 80076; 81003; 82607; 82746; 82941; 83540; 83605; 83690; 83735; 83880; 84484; 85014; 85018; 85025; 85044; 85610; 85730; 86850; 86900; 86901; 87811; 88305; 88312; 93005; 96365; 96366; 99285; C9113; J0171; J2001; J2704; J3480; J7030; J7050; J7120; P9016; Q9967